=== PATIENT | male | born 1965 | race American Indian/Alaskan Native ===

== ENCOUNTER 2019-01-05 20:06 | Emergency (ER) | payer SELFPAY ==
--- NOTE | 2019-01-05 21:09 | Event Note ---
ED Screening Note Date of service: 01/05/19 Time: 21:06 ED Screening Note: 53 y o male with no PMH presents with left side flank and abd pain This initial assessment/diagnostic orders/clinical plan/treatment(s) is/are subject to change based on patients health status, clinical progression and re- assessment by fellow clinical providers in the ED. Further treatment and workup at subsequent clinical providers discretion. Patient/guardian urged not to elope from the ED as their condition may be serious if not clinically assessed and managed. Initial orders include: ua, labs ct abd main side eval
[2019-01-05] MEDS ORDERED: HYDROcodone/ACETAMINOPHEN 10-325MG TAB ONE (21:35)
[2019-01-05] MEDS ORDERED: HYDROcodone/ACETAMINOPHEN 10-325MG TAB PO ONE (21:40)
--- NOTE | 2019-01-05 22:06 | Cat Scan Report ---
CT ABDOMEN AND PELVIS WITHOUT CONTRAST INDICATION / CLINICAL INFORMATION: Abdominal Pain. TECHNIQUE: Axial CT images were obtained through the abdomen and pelvis without IV contrast. All CT scans at [facility] location are performed using CT dose reduction for ALARA by means of automated exposure control. COMPARISON: None available. FINDINGS: LOWER CHEST: No significant abnormality. LIVER: Liver is diffusely hypodense characteristic of fatty infiltration. GALLBLADDER: Small calcified stones. No gallbladder wall thickening or inflammation. BILE DUCTS: No significant abnormality. PANCREAS: No significant abnormality. SPLEEN: No significant abnormality. ADRENALS: No significant abnormality. RIGHT KIDNEY and URETER: Tiny nonobstructing intrarenal stone. No ureteral stone or hydronephrosis. LEFT KIDNEY and URETER: 3 mm stone at the left ureterovesical junction with very mild left hydrourete ronephrosis and minimal left perinephric stranding. STOMACH and SMALL BOWEL: No significant abnormality. COLON: No significant abnormality. APPENDIX: No significant abnormality. PERITONEUM: No free fluid. No free air. No fluid collection. LYMPH NODES: No significant adenopathy. AORTA and ARTERIES: No significant abnormality. IVC and VEINS: No significant abnormality. URINARY BLADDER: No significant abnormality. REPRODUCTIVE ORGANS: No significant abnormality. ADDITIONAL FINDINGS: None. SKELETAL SYSTEM: No significant abnormality. IMPRESSION: 1. 3 mm stone at the left ureterovesical junction with very mild left hydronephrosis. 2. Tiny nonobstructing right intrarenal stone. 3. Hepatic steatosis. Signer Name: Courtney Melendrez MD Signed: 01/05/2019 10:02 PM Workstation Name: [id number]
[2019-01-05 22:24] LABS: Basophils # (Auto) 0.1 K/mm3 (0.0-0.1); Basophils % (Auto) 0.7 % (0.0-1.8); Eosinophils % (Auto) 0.1 % (0.0-4.3); Hemoglobin 14.4 gm/dl (11.8-15.2); Lymphocytes # (Auto) 2.1 K/mm3 (1.2-5.4); Lymphocytes % (Auto) 14.6 % (13.4-35.0); Mean Corpuscular HGB Conc 33 % (32-34); Mean Corpuscular Volume 91 fl (84-94); Monocytes # (Auto) 1.2 K/mm3 (0.0-0.8); Monocytes % (Auto) 7.8 % (0.0-7.3); Platelet Count 263 K/mm3 (140-440); Red Blood Count 4.71 M/mm3 (3.65-5.03); Red Cell Distribution Width 14.3 % (13.2-15.2)
[2019-01-05 22:28] LABS: Alanine Aminotransferase 46 units/L (7-56); Albumin 4.6 g/dL (3.9-5); BUN/Creatinine Ratio 19; Blood Urea Nitrogen 19 mg/dL (9-20); Calcium 9.7 mg/dL (8.4-10.2); Hemolysis Index 26
[2019-01-05] MEDS ORDERED: ONDANSETRON 4 MG/2 ML INJ IV ONE (22:57)
[2019-01-05] MEDS ORDERED: SODIUM CHLORIDE 0.9% 1000 ML 1,000 ML IV ONE (22:57)
[2019-01-05] MEDS ORDERED: MORPHINE 4 MG/1 ML INJ IV ONE (22:57)
--- NOTE | 2019-01-05 23:07 | Emergency Department Report ---
ED Abdominal Pain HPI - General Chief Complaint: Abdominal Pain Stated Complaint: LEFT SIDE PAIN Time Seen by Provider: 01/05/19 22:56 Source: patient Mode of arrival: Ambulatory Limitations: No Limitations - History of Present Illness Initial Comments: 53-year-old male presents to the emergency room for left flank pain that radiates to the left abdomen that started at 6 PM. Patient denies any nausea or vomiting. Denies any fever or chills. He has no past medical history currently takes no medications on a daily basis and has no known drug allergies. MD Complaint: abdominal pain -: This evening Time: 18:00 Location: L flank Radiation: LLQ Severity scale (0 -10): 10 Quality: cramping, aching, sharp Consistency: constant Improves With: nothing Worsens With: movement Associated Symptoms: denies other symptoms - Related Data Previous Rx's Medication Instructions Recorded Last Taken Type HYDROcodone/APAP 7.5-325 [[place] 1 each PO Q8HR PRN #12 tablet 01/05/19 Unknown Rx 7.5/325] Ketorolac [Toradol] 10 mg PO Q6H PRN #20 tablet 01/05/19 Unknown Rx Tamsulosin [Flomax] 0.4 mg PO QDAY #5 cap 01/05/19 Unknown Rx Allergies Allergy/AdvReac Type Severity Reaction Status Date / Time No Known Allergies Allergy Unverified 01/05/19 20:34 ED Review of Systems ROS: Stated complaint: LEFT SIDE PAIN Other details as noted in HPI ED Past Medical Hx - Past Medical History Previous Medical History?: Yes - Surgical History Past Surgical History?: No - Social History Smoking Status: Never Smoker Substance Use Type: Alcohol - Medications Home Medications: Home Medications Medication Instructions Recorded Confirmed Last Taken Type HYDROcodone/APAP 7.5-325 [[place] 1 each PO Q8HR PRN #12 tablet 01/05/19 Unknown Rx 7.5/325] Ketorolac [Toradol] 10 mg PO Q6H PRN #20 tablet 01/05/19 Unknown Rx Tamsulosin [Flomax] 0.4 mg PO QDAY #5 cap 01/05/19 Unknown Rx ED Physical Exam - General Limitations: No Limitations General appearance: alert, in no apparent distress - Head Head exam: Present: atraumatic, normocephalic - Eye Eye exam: Present: normal appearance - ENT ENT exam: Present: mucous membranes moist - Respiratory Respiratory exam: Present: normal lung sounds bilaterally. Absent: respiratory distress - Cardiovascular Cardiovascular Exam: Present: regular rate, normal rhythm. Absent: systolic murmur, diastolic murmur, rubs, gallop - GI/Abdominal GI/Abdominal exam: Present: soft, tenderness. Absent: distended - Extremities Exam Extremities exam: Present: normal inspection - Back Exam Back exam: Present: full ROM, CVA tenderness (L) - Neurological Exam Neurological exam: Present: alert, oriented X3 - Psychiatric Psychiatric exam: Present: normal affect, normal mood - Skin Skin exam: Present: warm, dry, intact, normal color. Absent: rash ED Course Vital Signs 01/05/19 01/05/19 01/05/19 20:23 21:04 22:00 Temperature 98.0 F 98 F Pulse Rate 71 70 Respiratory 18 18 20 Rate Blood Pressure 141/78 141/78 O2 Sat by Pulse 97 97 Oximetry - Reevaluation(s) Reevaluation #1: 01/06/19 01:04 Patient reports that he feels much better after having medications and fluid. ED Medical Decision Making - Lab Data Result diagrams: 01/05/19 21:44 01/05/19 21:44 - Radiology Data Radiology results: report reviewed Patient: OMEGA CAMARA MR#: [id number] : 1965 Acct:[id number] Age/Sex: 53 / M ADM Date: 01/05/19 Loc: ED Attending Dr: Ordering Physician: BERNA GRIFFIN Date of Service: 01/05/19 Procedure(s): CT abdomen pelvis wo con Accession Number(s): [id number] cc: BERNA GRIFFIN CT ABDOMEN AND PELVIS WITHOUT CONTRAST INDICATION / CLINICAL INFORMATION: Abdominal Pain. TECHNIQUE: Axial CT images were obtained through the abdomen and pelvis without IV contrast. All CT scans at this location are performed using CT dose reduction for ALARA by means of automated exposure control. COMPARISON: None available. FINDINGS: LOWER CHEST: No significant abnormality. LIVER: Liver is diffusely hypodense characteristic of fatty infiltration. GALLBLADDER: Small calcified stones. No gallbladder wall thickening or inflammation. BILE DUCTS: No significant abnormality. PANCREAS: No significant abnormality. SPLEEN: No significant abnormality. ADRENALS: No significant abnormality. RIGHT KIDNEY and URETER: Tiny nonobstructing intrarenal stone. No ureteral stone or hydronephrosis. LEFT KIDNEY and URETER: 3 mm stone at the left ureterovesical junction with very mild left hydroureteronephrosis and minimal left perinephric stranding. STOMACH and SMALL BOWEL: No significant abnormality. COLON: No significant abnormality. APPENDIX: No significant abnormality. PERITONEUM: No free fluid. No free air. No fluid collection. LYMPH NODES: No significant adenopathy. AORTA and ARTERIES: No significant abnormality. IVC and VEINS: No significant abnormality. URINARY BLADDER: No significant abnormality. REPRODUCTIVE ORGANS: No significant abnormality. ADDITIONAL FINDINGS: None. SKELETAL SYSTEM: No significant abnormality. IMPRESSION: 1. 3 mm stone at the left ureterovesical junction with very mild left hydro nephrosis. 2. Tiny nonobstructing right intrarenal stone. 3. Hepatic steatosis. Signer Name: Courtney Melendrez MD Signed: 01/05/2019 10:02 PM Workstation Name: [id number] Transcribed By: DT Dictated By: Juvencio Melendrez MD Electronically Authenticated By: Juvencio Melendrez MD Signed Date/Time: 01/05/192201 DD/ 57 TD/TT: - Medical Decision Making 53-year-old male presents to the emergency room for left flank pain that radiates to the left abdomen that started at 6 PM. Patient denies any nausea or vomiting. Denies any fever or chills. He has no past medical history currently takes no medications on a daily basis and has no known drug allergies. Critical care attestation.: If time is entered above; I have spent that time in minutes in the direct care of this critically ill patient, excluding procedure time. ED Disposition Clinical Impression: Calculus of left kidney Hydronephrosis Qualifiers: Hydronephrosis type: unspecified Qualified Code(s): N13.30 - Unspecified hydronephrosis Disposition: - TO HOME OR SELFCARE Is pt being admited?: No Does the pt Need Aspirin: No Condition: Stable Instructions: Kidney Stones (ED), Flank Pain (ED) Prescriptions: Tamsulosin [Flomax] 0.4 mg PO QDAY #5 cap HYDROcodone/APAP 7.5-325 [[place] 7.5/325] 1 each PO Q8HR PRN #12 tablet PRN Reason: Pain Ketorolac [Toradol] 10 mg PO Q6H PRN #20 tablet PRN Reason: Pain Referrals: PRIMARY CARE, [Primary Care Provider] - 3-5 Days YE MURRAY MD [Staff Physician] - 3-5 Days Forms: Work/School Release Form(ED) Print Language: WOLOF
[2019-01-06 00:49] LABS: Bacteria,Urine 1+ /HPF (Negative); Bilirubin,Urine NEG (Negative); Blood,Urine NEG (Negative); Color,Urine Yellow (Yellow); Mucus,Urine FEW /HPF; Protein,Urine <15 mg/dL mg/dL (Negative); Urobilinogen,Urine < 2.0 mg/dL (<2.0); WBC,Urine < 1.0 /HPF (0.0-6.0)
[2019-01-06 01:22] VITALS: BP 146/82
== END 2019-01-06 01:21 | disposition home or self-care (01) ==
LOC: ED 20:06
DX: N20.0 Calculus of kidney (principal); N13.30 Unspecified hydronephrosis; Z79.899 Other long term (current) drug therapy
CPT/HCPCS: 36415; 74176; 80053; 81001; 83690; 85025; 96374; 96375; 99284; J2270; J2405; J7030